=== PATIENT | female | born 1965 | race American Indian/Alaskan Native ===

== ENCOUNTER 2019-07-26 13:46 | Observation (INO) | payer SELFPAY ==
--- NOTE | 2019-07-26 14:40 | Event Note ---
ED Screening Note Date of service: 07/26/19 Time: 14:37 ED Screening Note: Pt complains of chest and shortness of breath x 1 week, worsening yesterday denies hx of IL/CVA/DVT/PE, recent long travel, or leg opain/swelling brother has hx of heart disease denies cough or congestion This initial assessment/diagnostic orders/clinical plan/treatment(s) is/are subject to change based on patients health status, clinical progression and re- assessment by fellow clinical providers in the ED. Further treatment and workup at subsequent clinical providers discretion. Patient/guardian urged not to elope from the ED as their condition may be serious if not clinically assessed and managed. Initial orders include: CXR Labs EKG
--- NOTE | 2019-07-26 15:22 | XRay Report ---
CHEST 2 VIEWS INDICATION / CLINICAL INFORMATION: MAIN: Chest Pain for about a week/worsening today. COMPARISON: None available. FINDINGS: SUPPORT DEVICES: None. HEART / MEDIASTINUM: No significant abnormality. LUNGS / PLEURA: No significant pulmonary or pleural abnormality. No pneumothorax. ADDITIONAL FINDINGS: No significant additional findings. IMPRESSION: 1. No acute findings. Signer Name: Isma Turcios MD Signed: 07/26/2019 3:17 PM Workstation Name: [id number]
[2019-07-26 15:42] LABS: Hematocrit 38.1 % (30.3-42.9); Hemoglobin 12.6 gm/dl (10.1-14.3); Mean Corpuscular HGB Conc 33 % (30-34); Mean Corpuscular Volume 91 fl (79-97); Platelet Count 276 K/mm3 (140-440); Red Blood Count 4.18 M/mm3 (3.65-5.03); Red Cell Distribution Width 13.5 % (13.2-15.2)
[2019-07-26 16:01] LABS: BUN/Creatinine Ratio 15; Blood Urea Nitrogen 12 mg/dL (7-17); Calcium 9.8 mg/dL (8.4-10.2); Hemolysis Index 4
[2019-07-26] MEDS ORDERED: CLOPIDOGREL 300 MG TAB PO ONE (19:13)
[2019-07-26] MEDS ORDERED: NITROGLYCERIN 2% OINT 1 GM TP ONE (19:13)
--- NOTE | 2019-07-26 19:16 | Emergency Department Report ---
HPI - General Chief Complaint: Chest Pain Time Seen by Provider: 07/26/19 14:37 - HPI HPI: Room 37 The pt is a 54 y/o F p/w a cc of CP and palpitations. The pt states for 1 week she has had intermittent Palpitations associated with CP and LUE cramping. The pt states the episodes last for seconds and family states lately the epsisodes have been coming ~ every 10 mins. The pt states she had a nl stress test 2 years ago but has never had a cath. ED Past Medical Hx - Past Medical History Hx Hypertension: Yes Additional medical history: HYPOTHYROID. PINCHED NERVE IN NECK - Surgical History Additional Surgical History: HYSTERECTOMY. TUBAL LIGATION - Family History Family history: no significant - Social History Smoking Status: Never Smoker Substance Use Type: None (denies illicit drug use), Alcohol (occ) - Medications Home Medications: Home Medications Medication Instructions Recorded Confirmed Last Taken Type Atenolol [Tenormin] 25 mg PO BID 10/30/15 10/30/15 10/30/15 09:00 History Fluticasone [Flonase] 1 spray NS QDAY #1 bottle 10/30/15 Unknown Rx Levothyroxine [Synthroid] 0 mcg PO QAM 10/30/15 10/30/15 10/30/15 09:00 History methOCARBAMOL [Robaxin TAB] 1,500 mg PO TID PRN #30 tab 10/30/15 Unknown Rx methylPREDNISolone [Medrol] 4 mg PO QDAY #1 tab.ds.pk 10/30/15 Unknown Rx Cyclobenzaprine [Flexeril] 10 mg PO TID PRN #14 tablet 07/21/16 Unknown Rx HYDROcodone/APAP 5-325 [[place] 1 - 2 each PO Q6HR PRN #14 tablet 07/21/16 Unknown Rx 5/325] Levothyroxine [Synthroid] 100 mcg PO QAM #60 tablet 07/21/16 Unknown Rx ED Review of Systems ROS: Stated complaint: CHEST/BACK PAIN/SOB Other details as noted in HPI Constitutional: no symptoms reported Eyes: denies: eye pain ENT: denies: throat pain Respiratory: no symptoms reported Cardiovascular: chest pain, palpitations Endocrine: no symptoms reported Gastrointestinal: denies: abdominal pain Genitourinary: denies: dysuria Musculoskeletal: denies: back pain Neurological: paresthesias Physical Exam - Physical Exam Vital Signs: Vital Signs 07/26/19 13:55 Temperature 98.5 F Pulse Rate 69 Respiratory 18 Rate Blood Pressure 195/101 O2 Sat by Pulse 99 Oximetry Physical Exam: GEN: WD WN F lying on stretcher in NAD HEENT: NCAT, EOMI NECK:Trachea midline, no stridor CV: rrr no m/r/g Pulm: CTAB. no resp distress ABD: s/nt/nd +BS Neuro: GCS 15 SKIN: no diaphoresis MS: no evidence of acute injury ED Course Vital Signs 07/26/19 13:55 Temperature 98.5 F Pulse Rate 69 Respiratory 18 Rate Blood Pressure 195/101 O2 Sat by Pulse 99 Oximetry ED Medical Decision Making - Lab Data Result diagrams: 07/26/19 15:16 07/26/19 15:16 Laboratory Tests 07/26/19 07/26/19 15:16 15:16 WBC 5.3 RBC 4.18 Hgb 12.6 Hct 38.1 MCV 91 MCH 30 MCHC 33 RDW 13.5 Plt Count 276 Sodium 138 Potassium 4.0 Chloride 101.8 Carbon Dioxide 23 Anion Gap 17 BUN 12 Creatinine 0.8 Estimated GFR > 60 BUN/Creatinine Ratio 15 Glucose 90 Calcium 9.8 Troponin T < 0.010 - EKG Data -: EKG Interpreted by Me EKG shows normal: sinus rhythm Rate: normal - EKG Data When compared to previous EKG there are: previous EKG unavailable Interpretation: normal EKG - Radiology Data Radiology results: report reviewed (CXR), image reviewed (CXR) interpreted by me: CXR- no focal infiltrates, no ptx [address] [address] XRay Report Signed Patient: MALINA LIN MR#: [id number] : 1965 Acct:[id number] Age/Sex: 54 / F ADM Date: 07/26/19 Loc: ED Attending Dr: Ordering Physician: KEY ROA Date of Service: 07/26/19 Procedure(s): XR chest routine 2V Accession Number(s): [id number] cc: KEY ROA Fluoro Time In Minutes: CHEST 2 VIEWS INDICATION / CLINICAL INFORMATION: MAIN: Chest Pain for about a week/worsening today. COMPARISON: None available. FINDINGS: SUPPORT DEVICES: None. HEART / MEDIASTINUM: No significant abnormality. LUNGS / PLEURA: No significant pulmonary or pleural abnormality. No pneumothorax. ADDITIONAL FINDINGS: No significant additional findings. IMPRESSION: 1. No acute findings. Signer Name: Isma Turcios MD Signed: 07/26/2019 3:17 PM Workstation Name: [id number] Transcribed By: Dictated By: Isma Turcios MD Electronically Authenticated By: Isma uTrcios MD Signed Date/Time: 07/26/191516 DD/ 16 TD/TT: - Differential Diagnosis dysrhythmia, ACS, pericarditis, GERD Critical care attestation.: If time is entered above; I have spent that time in minutes in the direct care of this critically ill patient, excluding procedure time. ED Disposition Clinical Impression: Chest pain, Palpitations Disposition: OP ADMIT IP TO THIS HOSP Is pt being admited?: Yes Does the pt Need Aspirin: No Condition: Fair Instructions: Chest Pain (ED) Time of Disposition: 19:20 (Hospitalist paged (Dr Montague))
[2019-07-26] MEDS ORDERED: ACETAMINOPHEN 325 MG TAB PO PRN (19:51)
[2019-07-26] MEDS ORDERED: MORPHINE 2 MG/1 ML INJ IV PRN (19:51)
[2019-07-26] MEDS ORDERED: ONDANSETRON 4 MG/2 ML INJ IV PRN (19:51)
[2019-07-26] MEDS ORDERED: hydrALAZINE 20 MG/1 ML INJ IV PRN (20:03)
[2019-07-26 20:19] LABS: Free T4 (Free Thyroxine) 0.62 ng/dL (0.76-1.46)
--- NOTE | 2019-07-26 21:27 | History and Physical Report ---
History of Present Illness Date of examination: 07/26/19 Date of admission: 07/26/19 19:51 Chief complaint: Chest Pain History of present illness: 54-year-old -English female with history of hypertension, hypothyroidism, and pinched nerve in neck since a sinus CT with complaints of chest pain for the past week. Patient states that she's been experiencing intermittent left-sided chest pain for the past week. Over over the weekend her pain became more persistent with radiation to right and left chest. Patient describes her pain has pressure, and rates it 7/10. She denies nausea, emesis or diaphoresis. She admits to having stress test 2 years ago and it was negative. Additionally patient complains of discomfort with urination and left side back pain. States that her symptoms are similar to when she was diagnosed with a UTI 2 months. She was treated with oral antibiotics for UTI and confirms position on a full course of antibiotics. Past History Past Medical History: hypertension, hypothyroidism, other (pinched nerve in neck) Past Surgical History: hysterectomy, Other (tubal ligation) Social history: lives with family, other (occasional alcohol use) Family history: hypertension Medications and Allergies Allergies Allergy/AdvReac Type Severity Reaction Status Date / Time aspirin Allergy Swelling Verified 07/26/19 14:19 ibuprofen Allergy Swelling Verified 07/26/19 14:19 codeine AdvReac Vomiting Verified 07/26/19 14:19 SALMON Allergy Swelling Uncoded 07/26/19 14:19 Home Medications Medication Instructions Recorded Confirmed Last Taken Type Atenolol [Tenormin] 25 mg PO BID 10/30/15 10/30/15 10/30/15 09:00 History Fluticasone [Flonase] 1 spray NS QDAY #1 bottle 10/30/15 Unknown Rx Levothyroxine [Synthroid] 0 mcg PO QAM 10/30/15 10/30/15 10/30/15 09:00 History methOCARBAMOL [Robaxin TAB] 1,500 mg PO TID PRN #30 tab 10/30/15 Unknown Rx methylPREDNISolone [Medrol] 4 mg PO QDAY #1 tab.ds.pk 10/30/15 Unknown Rx Cyclobenzaprine [Flexeril] 10 mg PO TID PRN #14 tablet 07/21/16 Unknown Rx HYDROcodone/APAP 5-325 [[place] 1 - 2 each PO Q6HR PRN #14 tablet 07/21/16 Unknown Rx 5/325] Levothyroxine [Synthroid] 100 mcg PO QAM #60 tablet 07/21/16 Unknown Rx Active Meds: Active Medications Acetaminophen (Tylenol) 650 mg PO Q4H PRN PRN Reason: Pain MILD(1-3)/Fever >100.5/RAMSAY Atenolol (Tenormin) 25 mg PO BID MADHU Atorvastatin Calcium (Lipitor) 40 mg PO QHS MADHU Clopidogrel Bisulfate (Plavix) 75 mg PO QDAY MADHU Enoxaparin Sodium (Enoxaparin) 40 mg SUB-Q QDAY MADHU Hydralazine HCl (Apresoline) 10 mg IV Q4H PRN PRN Reason: SBP>160 OR DBP>100 Levothyroxine Sodium (Synthroid) 112 mcg PO DAILY@0600 MAD[facility] Morphine Sulfate (Morphine) 2 mg IV Q4H PRN PRN Reason: Pain, Moderate (4-6) Ondansetron HCl (Zofran) 4 mg IV Q6H PRN PRN Reason: Nausea And Vomiting Sodium Chloride (Sodium Chloride Flush Syringe 10 Ml) 10 ml IV BID MADHU Sodium Chloride (Sodium Chloride Flush Syringe 10 Ml) 10 ml IV PRN PRN PRN Reason: LINE FLUSH Review of Systems All systems: negative Cardiovascular: chest pain, dyspnea on exertion Exam - Physical Exam Narrative exam: Physical exam General appearance: Present: No apparent distress, alert and oriented 3,pleasant, well-developed, well-nourished, adult -English female - EENT Eyes: Present: PERRL, EOM intact ENT: hearing intact, normal dentition - Neck Neck: Present: supple, normal ROM - Respiratory Respiratory effort: Non-labored Respiratory: CTA bilaterally - Cardiovascular Heart rate: 74 (bpm) Rhythm: SR Heart Sounds: Present: S1 & S2. Absent: rub, click - Extremities Extremities: no ischemia, pulses intact, - Peripheral Assessment Peripheral Pulses: within normal limits - Abdominal General gastrointestinal: soft, non-tender, normal bowel sounds - Integumentary Integumentary: Present: warm, dry - Musculoskeletal Musculoskeletal: able to move all extremities 4 -Neurological Neurological: CN II-XII grossly intact - Psychiatric Psychiatric: cooperative - Constitutional Vitals: Temp Pulse Resp BP Pulse Ox 98.5 F 78 16 190/117 99 07/26/19 13:55 07/26/19 20:10 07/26/19 21:14 07/26/19 20:10 07/26/19 13:55 Results - Labs CBC & Chem 7: 07/26/19 15:16 07/26/19 15:16 Labs: Laboratory Last Values WBC 5.3 K/mm3 (4.5-11.0) 07/26/19 15:16 RBC 4.18 M/mm3 (3.65-5.03) 07/26/19 15:16 Hgb 12.6 gm/dl (10.1-14.3) 07/26/19 15:16 Hct 38.1 % (30.3-42.9) 07/26/19 15:16 MCV 91 fl (79-97) 07/26/19 15:16 MCH 30 pg (28-32) 07/26/19 15:16 MCHC 33 % (30-34) 07/26/19 15:16 RDW 13.5 % (13.2-15.2) 07/26/19 15:16 Plt Count 276 K/mm3 (140-440) 07/26/19 15:16 Sodium 138 mmol/L (137-145) 07/26/19 15:16 Potassium 4.0 mmol/L (3.6-5.0) 07/26/19 15:16 Chloride 101.8 mmol/L (98-107) 07/26/19 15:16 Carbon Dioxide 23 mmol/L (22-30) 07/26/19 15:16 Anion Gap 17 mmol/L 07/26/19 15:16 BUN 12 mg/dL (7-17) 07/26/19 15:16 Creatinine 0.8 mg/dL (0.7-1.2) 07/26/19 15:16 Estimated GFR > 60 ml/min 07/26/19 15:16 BUN/Creatinine Ratio 15 % 07/26/19 15:16 Glucose 90 mg/dL (65-100) 07/26/19 15:16 Calcium 9.8 mg/dL (8.4-10.2) 07/26/19 15:16 Troponin T < 0.010 ng/mL (0.00-0.029) 07/26/19 19:13 TSH 1.280 mlU/mL (0.270-4.200) 07/26/19 19:30 Free T4 0.62 ng/dL (0.76-1.46) L 07/26/19 19:30 - Imaging and Cardiology Imaging and Cardiology: CXR: FINDINGS: SUPPORT DEVICES: None. HEART / MEDIASTINUM: No significant abnormality. LUNGS / PLEURA: No significant pulmonary or pleural abnormality. No pneumothorax. ADDITIONAL FINDINGS: No significant additional findings. IMPRESSION: 1. No acute findings. Assessment and Plan Assessment and plan: 54-year-old -English female with history of hypertension, hypothyroidism, and pinched nerve in neck since a sinus CT with complaints of chest pain for the past week. Acute Chest Pain R/O ACS -Initiate chest pain protocol -Continuous telemetry monitoring -Continue supportive care -Pain mgmt -Troponin neg x 2, will continue to trend x1 -History of palpitation -Started on Plavix (she has ASA allergy) and statin -The stress test 2 years ago -Treadmill stress test pending -Will defer further diagnostic testing per cardiology recommendation -Cardiology consulted Hypertensive urgency -BP on admission 190/117 Hx HTN, compliant with medication -Monitor BP -Resume home antihypertensive meds to optimize BP -IV hydralazine when necessary Hypothyroidism -Continue Synthroid Hx of UTI -Possibly 2 months ago treated with oral Abx -c/o discomfort with urination -UA pending -Will start on IV abx and order culture if UA positive DVT PPX -On Lovenox Advance Directives: No VTE prophylaxis?: Chemical Plan of care discussed with patient/family: Yes
[2019-07-26] MEDS ORDERED: ONDANSETRON 4 MG/2 ML INJ ONE (21:41)
[2019-07-26 23:44] LABS: Basophils % (Auto) 0.5 % (0.0-1.8); Eosinophils # (Auto) 0.2 K/mm3 (0.0-0.4); Eosinophils % (Auto) 3.2 % (0.0-4.3); Hematocrit 38.7 % (30.3-42.9); Lymphocytes # (Auto) 1.7 K/mm3 (1.2-5.4); Lymphocytes % (Auto) 25.5 % (13.4-35.0); Mean Corpuscular HGB Conc 34 % (30-34); Mean Corpuscular Volume 90 fl (79-97); Monocytes # (Auto) 0.3 K/mm3 (0.0-0.8); Monocytes % (Auto) 4.9 % (0.0-7.3); Platelet Count 278 K/mm3 (140-440); Red Blood Count 4.31 M/mm3 (3.65-5.03); Red Cell Distribution Width 13.5 % (13.2-15.2)
[2019-07-26 23:56] LABS: Bilirubin,Urine NEG (Negative); Blood,Urine NEG (Negative); Color,Urine Straw (Yellow); Protein,Urine <15 mg/dL mg/dL (Negative); RBC,Urine < 1.0 /HPF (0.0-6.0); Urobilinogen,Urine < 2.0 mg/dL (<2.0); WBC,Urine < 1.0 /HPF (0.0-6.0)
[2019-07-27] MEDS: atenoloL 25 MG TAB PO SCH ×2 (00:24→14:35)
[2019-07-27 01:37] LABS: BUN/Creatinine Ratio 14; Blood Urea Nitrogen 13 mg/dL (7-17); Calcium 9.6 mg/dL (8.4-10.2); Chol/HDL Ratio 3.05 %; HDL Cholesterol 59 mg/dL (40-59); Hemolysis Index 0; LDL Cholesterol,Direct 124 mg/dL (50-130)
[2019-07-27 04:25] LABS: Basophils % (Auto) 0.1 % (0.0-1.8); Eosinophils # (Auto) 0.2 K/mm3 (0.0-0.4); Eosinophils % (Auto) 3.5 % (0.0-4.3); Hematocrit 37.3 % (30.3-42.9); Hemoglobin 12.2 gm/dl (10.1-14.3); Lymphocytes # (Auto) 1.8 K/mm3 (1.2-5.4); Lymphocytes % (Auto) 26.2 % (13.4-35.0); Mean Corpuscular HGB Conc 33 % (30-34); Mean Corpuscular Volume 91 fl (79-97); Monocytes # (Auto) 0.4 K/mm3 (0.0-0.8); Platelet Count 264 K/mm3 (140-440); Red Blood Count 4.11 M/mm3 (3.65-5.03); Red Cell Distribution Width 13.3 % (13.2-15.2)
[2019-07-27 04:41] LABS: BUN/Creatinine Ratio 18; Blood Urea Nitrogen 14 mg/dL (7-17); Calcium 9.5 mg/dL (8.4-10.2); Hemolysis Index 10
[2019-07-27] MEDS ORDERED: LEVOTHYROXINE 112 MCG TAB PO SCH (06:00)
[2019-07-27] MEDS ORDERED: CLOPIDOGREL 75 MG TAB PO SCH (10:00)
[2019-07-27] MEDS ORDERED: PANTOPRAZOLE 40 MG INJ IV SCH (10:00)
[2019-07-27] MEDS ORDERED: ENOXAPARIN 40 MG/0.4 ML INJ SUB-Q SCH (10:00)
--- NOTE | 2019-07-27 10:12 | Consultation ---
Past History Past Medical History: hypertension, hypothyroidism, other (pinched nerve in neck) Past Surgical History: hysterectomy, Other (tubal ligation) Social history: lives with family, other (occasional alcohol use) Family history: hypertension Medications and Allergies Allergies Allergy/AdvReac Type Severity Reaction Status Date / Time aspirin Allergy Swelling Verified 07/26/19 14:19 ibuprofen Allergy Swelling Verified 07/26/19 14:19 codeine AdvReac Vomiting Verified 07/26/19 14:19 SALMON Allergy Swelling Uncoded 07/26/19 14:19 Home Medications Medication Instructions Recorded Confirmed Last Taken Type Atenolol [Tenormin] 25 mg PO BID 10/30/15 07/26/19 10/30/15 09:00 History Fluticasone [Flonase] 1 spray NS QDAY #1 bottle 10/30/15 07/26/19 Unknown Rx Levothyroxine [Synthroid] 100 mcg PO QAM #60 tablet 07/21/16 07/26/19 Unknown Rx Multivit with Calcium,Iron,Min 1 each PO DAILY 07/26/19 07/26/19 Unknown History [One Daily Women's] Active Meds: Active Medications Acetaminophen (Tylenol) 650 mg PO Q4H PRN PRN Reason: Pain MILD(1-3)/Fever >100.5/RAMSAY Last Admin: 07/27/19 01:35 Dose: 650 mg Documented by: Atenolol (Tenormin) 25 mg PO BID [facility] Last Admin: 07/27/19 00:24 Dose: 25 mg Documented by: Atorvastatin Calcium (Lipitor) 40 mg PO QHS [facility] Last Admin: 07/26/19 23:12 Dose: 40 mg Documented by: Clopidogrel Bisulfate (Plavix) 75 mg PO QDAY [facility] Enoxaparin Sodium (Enoxaparin) 40 mg SUB-Q QDAY [facility] Hydralazine HCl (Apresoline) 10 mg IV Q4H PRN PRN Reason: SBP>160 OR DBP>100 Levothyroxine Sodium (Synthroid) 112 mcg PO DAILY@0600 [facility] Last Admin: 07/27/19 06:11 Dose: 112 mcg Documented by: Morphine Sulfate (Morphine) 2 mg IV Q4H PRN PRN Reason: Pain, Moderate (4-6) Last Admin: 07/26/19 21:34 Dose: 2 mg Documented by: Ondansetron HCl (Zofran) 4 mg IV Q6H PRN PRN Reason: Nausea And Vomiting Last Admin: 07/26/19 21:51 Dose: 4 mg Documented by: Pantoprazole Sodium (Protonix) 40 mg IV QDAY MADHU Sodium Chloride (Sodium Chloride Flush Syringe 10 Ml) 10 ml IV BID MADHU Last Admin: 07/27/19 00:25 Dose: 10 ml Documented by: Sodium Chloride (Sodium Chloride Flush Syringe 10 Ml) 10 ml IV PRN PRN PRN Reason: LINE FLUSH Physical Examination Vital Signs Temp Pulse Resp BP Pulse Ox 98.5 F 69 18 195/101 99 07/26/19 13:55 07/26/19 13:55 07/26/19 13:55 07/26/19 13:55 07/26/19 13:55 Results 07/27/19 03:51 07/27/19 03:51 Lipids 07/26/19 Range/Units 23:26 Triglycerides 55 (2-149) mg/dL Cholesterol 180 (50-199) mg/dL HDL Cholesterol 59 (40-59) mg/dL Cholesterol/HDL Ratio 3.05 % CBC 07/26/19 07/26/19 07/27/19 Range/Units 15:16 23:26 03:51 WBC 5.3 6.7 6.9 (4.5-11.0) K/mm3 RBC 4.18 4.31 4.11 (3.65-5.03) M/mm3 Hgb 12.6 13.0 12.2 (10.1-14.3) gm/dl Hct 38.1 38.7 37.3 (30.3-42.9) % Plt Count 276 278 264 (140-440) K/mm3 Lymph # 1.7 1.8 (1.2-5.4) K/mm3 Cache # 0.3 0.4 (0.0-0.8) K/mm3 Eos # 0.2 0.2 (0.0-0.4) K/mm3 Baso # 0.0 0.0 (0.0-0.1) K/mm3 Comprehensive Metabolic Panel 07/26/19 07/26/19 07/27/19 Range/Units 15:16 23:26 03:51 Sodium 138 139 137 (137-145) mmol/L Potassium 4.0 4.0 4.0 (3.6-5.0) mmol/L Chloride 101.8 102.4 101.4 (98-107) mmol/L Carbon Dioxide 23 25 24 (22-30) mmol/L BUN 12 13 14 (7-17) mg/dL Creatinine 0.8 0.9 0.8 (0.7-1.2) mg/dL Glucose 90 108 H 112 H (65-100) mg/dL Calcium 9.8 9.6 9.5 (8.4-10.2) mg/dL Assessment and Plan full consult dictated
[2019-07-27] MEDS ORDERED: REGADENOSON 0.4 MG/5 ML INJ IV ONE (10:28)
[2019-07-27] MEDS ORDERED: PANTOPRAZOLE 40 MG TAB PO SCH (11:00)
--- NOTE | 2019-07-27 11:33 | Consultation ---
REFERRING PHYSICIAN: Hospitalist service. REASON FOR CONSULTATION: Advice and opinion regarding chest pain. HISTORY OF PRESENT ILLNESS: The patient is a pleasant 54-year-old -German female with a history of hypertension, hypothyroidism, radiculopathy, who presents with left-sided chest pain on and off for the last week, sharp and tight nonexertional. Her primary care physician is at [facility]. She is currently seen in the stress lab. Denies any chest pain. No syncope or presyncope. No lightheadedness or dizziness. No abdominal pain, hematochezia, melena, hemoptysis or hematemesis. PAST MEDICAL HISTORY: Hypertension, hypothyroidism. PAST SURGICAL HISTORY: Hysterectomy, tubal ligation. SOCIAL HISTORY: Lives with her family. Nonsmoker, occasional alcohol use. FAMILY HISTORY: Hypertension. ALLERGIES: Allergic to ASPIRIN, IBUPROFEN, CODEINE and SALMON. HOME MEDICATIONS: Reviewed and include atenolol, Flonase, Synthroid, Robaxin, Medrol, Flexeril. REVIEW OF SYSTEMS: As per HPI. She is currently chest pain free, feeling much better. PHYSICAL EXAMINATION: VITAL SIGNS: Blood pressure is 120/70. She is afebrile. Tele reveals sinus rhythm, no dysrhythmias. O2 sats 90% on room air. GENERAL: This is a middle-aged -German female in no apparent distress, oriented x 3. HEENT: Sclerae icteric. NECK: Supple, no masses, no JVD. CHEST: Clear to auscultation bilaterally. Good air movement. CARDIOVASCULAR: Regular rhythm, S1, S2. ABDOMEN: Soft, nontender, nondistended. Normoactive bowel sounds in 4 quadrants. No mass or bruits. EXTREMITIES: No cyanosis, clubbing or edema. Good peripheral pulses. SKIN: Intact. No rashes. LABORATORY DATA: EKG reveals normal sinus rhythm, nonacute nonspecific ST-T changes. Troponins negative x 3. Blood work is otherwise unremarkable, CBC and BMP. CONCLUSIONS: In summary, the patient is a pleasant 54-year-old -German female. 1. Chest pain with typical and atypical features. Cardiac enzymes negative x 3. Stress test is pending. Risk factors include hypertension. 2. Hypertensive urgency upon arrival in the Emergency Room, now improved. 3. Multiple medication allergies. Further plans contingent on stress test results. Thank you for this consultation and I would be happy following with you. JOB# [id number] SBM/NTS
[2019-07-27 12:38] VITALS: BP 149/95
--- NOTE | 2019-07-27 14:24 | Progress Note ---
Assessment and Plan Assessment and plan: 54-year-old -[place] Citizen female with history of hypertension, hypothyroidism, and pinched nerve in neck since a sinus CT with complaints of chest pain for the past week. Acute Chest Pain R/O ACS -Initiate chest pain protocol -Continuous telemetry monitoring -Continue supportive care -Pain mgmt -Troponin neg x 2, will continue to trend x1 -History of palpitation -Started on Plavix (she has ASA allergy) and statin -The stress test 2 years ago -Treadmill stress test pending -Will defer further diagnostic testing per cardiology recommendation -Cardiology consulted Hypertensive urgency -BP on admission 190/117 Hx HTN, compliant with medication -Monitor BP -Resume home antihypertensive meds to optimize BP -IV hydralazine when necessary Hypothyroidism -Continue Synthroid Hx of UTI -Possibly 2 months ago treated with oral Abx -c/o discomfort with urination -UA pending -Will start on IV abx and order culture if UA positive DVT PPX -On Lovenox Advance Directives: No VTE prophylaxis?: Chemical Plan of care discussed with patient/family: Yes Hospitalist Physical - Constitutional Vitals: Temp Pulse Resp BP Pulse Ox 98.3 F 76 18 149/95 100 07/27/19 04:32 07/27/19 12:36 07/27/19 08:31 07/27/19 12:36 07/27/19 14:15 Results - Labs CBC & Chem 7: 07/27/19 03:51 07/27/19 03:51 Labs: Laboratory Last Values WBC 6.9 K/mm3 (4.5-11.0) 07/27/19 03:51 RBC 4.11 M/mm3 (3.65-5.03) 07/27/19 03:51 Hgb 12.2 gm/dl (10.1-14.3) 07/27/19 03:51 Hct 37.3 % (30.3-42.9) 07/27/19 03:51 MCV 91 fl (79-97) 07/27/19 03:51 MCH 30 pg (28-32) 07/27/19 03:51 MCHC 33 % (30-34) 07/27/19 03:51 RDW 13.3 % (13.2-15.2) 07/27/19 03:51 Plt Count 264 K/mm3 (140-440) 07/27/19 03:51 Lymph % (Auto) 26.2 % (13.4-35.0) 07/27/19 03:51 [place] % (Auto) 6.0 % (0.0-7.3) 07/27/19 03:51 Eos % (Auto) 3.5 % (0.0-4.3) 07/27/19 03:51 Baso % (Auto) 0.1 % (0.0-1.8) 07/27/19 03:51 Lymph # 1.8 K/mm3 (1.2-5.4) 07/27/19 03:51 [place] # 0.4 K/mm3 (0.0-0.8) 07/27/19 03:51 Eos # 0.2 K/mm3 (0.0-0.4) 07/27/19 03:51 Baso # 0.0 K/mm3 (0.0-0.1) 07/27/19 03:51 Seg Neutrophils % 64.2 % (40.0-70.0) 07/27/19 03:51 Seg Neutrophils # 4.5 K/mm3 (1.8-7.7) 07/27/19 03:51 Sodium 137 mmol/L (137-145) 07/27/19 03:51 Potassium 4.0 mmol/L (3.6-5.0) 07/27/19 03:51 Chloride 101.4 mmol/L (98-107) 07/27/19 03:51 Carbon Dioxide 24 mmol/L (22-30) 07/27/19 03:51 Anion Gap 16 mmol/L 07/27/19 03:51 BUN 14 mg/dL (7-17) 07/27/19 03:51 Creatinine 0.8 mg/dL (0.7-1.2) 07/27/19 03:51 Estimated GFR > 60 ml/min 07/27/19 03:51 BUN/Creatinine Ratio 18 % 07/27/19 03:51 Glucose 112 mg/dL (65-100) H 07/27/19 03:51 Calcium 9.5 mg/dL (8.4-10.2) 07/27/19 03:51 Troponin T < 0.010 ng/mL (0.00-0.029) 07/27/19 03:51 Triglycerides 55 mg/dL (2-149) 07/26/19 23:26 Cholesterol 180 mg/dL (50-199) 07/26/19 23:26 LDL Cholesterol Direct 124 mg/dL (50-130) 07/26/19 23:26 HDL Cholesterol 59 mg/dL (40-59) 07/26/19 23:26 Cholesterol/HDL Ratio 3.05 % 07/26/19 23:26 TSH 1.280 mlU/mL (0.270-4.200) 07/26/19 19:30 Free T4 0.62 ng/dL (0.76-1.46) L 07/26/19 19:30 Urine Color Straw (Yellow) 07/26/19 23:16 Urine Turbidity Clear (Clear) 07/26/19 23:16 Urine pH 6.0 (5.0-7.0) 07/26/19 23:16 Ur Specific [place] 1.009 (1.003-1.030) 07/26/19 23:16 Urine Protein <15 mg/dl mg/dL (Negative) 07/26/19 23:16 Urine Glucose (UA) Neg mg/dL (Negative) 07/26/19 23:16 Urine Ketones Tr mg/dL (Negative) 07/26/19 23:16 Urine Blood Neg (Negative) 07/26/19 23:16 Urine Nitrite Neg (Negative) 07/26/19 23:16 Urine Bilirubin Neg (Negative) 07/26/19 23:16 Urine Urobilinogen < 2.0 mg/dL (<2.0) 07/26/19 23:16 Ur Leukocyte Esterase Neg (Negative) 07/26/19 23:16 Urine WBC (Auto) < 1.0 /HPF (0.0-6.0) 07/26/19 23:16 Urine RBC (Auto) < 1.0 /HPF (0.0-6.0) 07/26/19 23:16 U Epithel Cells (Auto) < 1.0 /HPF (0-13.0) 07/26/19 23:16 Active Medications - Current Medications Current Medications: Generic Name Dose Route Start Last Admin Trade Name Freq PRN Reason Stop Dose Admin Acetaminophen 650 mg 07/26/19 19:51 07/27/19 01:35 Tylenol PO 650 mg Q4H PRN Administration Pain MILD(1-3)/Fever >100.5/RAMSAY Atenolol 25 mg 07/26/19 22:00 07/27/19 00:24 Tenormin PO 25 mg BID MADHU Administration Atorvastatin Calcium 40 mg 07/26/19 22:00 07/26/19 23:12 Lipitor PO 40 mg QHS MADHU Administration Clopidogrel Bisulfate 75 mg 07/27/19 10:00 Plavix PO QDAY [facility] Enoxaparin Sodium 40 mg 07/27/19 10:00 Enoxaparin SUB-Q QDAY [facility] Hydralazine HCl 10 mg 07/26/19 20:03 Apresoline IV Q4H PRN SBP>160 OR DBP>100 Levothyroxine Sodium 112 mcg 07/27/19 06:00 07/27/19 06:11 Synthroid PO 112 mcg DAILY@0600 [facility] Administration Morphine Sulfate 2 mg 07/26/19 19:51 07/26/19 21:34 Morphine IV 2 mg Q4H PRN Administration Pain, Moderate (4-6) Ondansetron HCl 4 mg 07/26/19 19:51 07/26/19 21:51 Zofran IV 4 mg Q6H PRN Administration Nausea And Vomiting Pantoprazole Sodium 40 mg 07/27/19 11:00 Protonix PO DAILY [facility] Sodium Chloride 10 ml 07/26/19 22:00 07/27/19 00:25 Sodium Chloride Flush Syringe 10 Ml IV 10 ml BID MADHU Administration Sodium Chloride 10 ml 07/26/19 19:51 Sodium Chloride Flush Syringe 10 Ml IV PRN PRN LINE FLUSH
--- NOTE | 2019-07-27 17:22 | Discharge Summary ---
Providers - Providers Date of Admission: 07/26/19 19:51 Attending physician: CASE DAVIS MD 07/26/19 19:51 Consult to Physician [CONS] Routine Comment: Consulting Provider: SHIRLEY COREY Physician Instructions: Reason For Exam: chest pain, hx palpitation [facility] Hospital course: 54-year-old woman who presents to the hospital complaining of chest pain. She went on to have stress test which was negative, she was found to have hypertensive urgency. BP meds were optimized. Preventative health counseling performed for 17 minutes Diagnosis chest pain likely due to hypertensive urgency Hypertensive urgency Chronic hypothyroidism on Synthroid Disposition: TO HOME OR SELFCARE Time spent for discharge: 35 minutes Core Measure Documentation - Palliative Care Palliative Care/ Comfort Measures: Not Applicable - Core Measures Any of the following diagnoses?: none Exam - Constitutional Vitals: Temp Pulse Resp BP Pulse Ox 98.3 F 76 18 149/95 100 07/27/19 04:32 07/27/19 14:35 07/27/19 08:31 07/27/19 14:35 07/27/19 14:15 General appearance: Present: no acute distress, well-nourished - EENT Eyes: Present: PERRL ENT: hearing intact, clear oral mucosa - Neck Neck: Present: supple, normal ROM - Respiratory Respiratory effort: normal Respiratory: bilateral: CTA - Cardiovascular Heart Sounds: Present: S1 & S2. Absent: rub, click - Extremities Extremities: pulses symmetrical, No edema Peripheral Pulses: within normal limits - Abdominal General gastrointestinal: Present: soft, non-tender, non-distended, normal bowel sounds Female genitourinary: Present: normal - Integumentary Integumentary: Present: clear, warm, dry - Musculoskeletal Musculoskeletal: gait normal, strength equal bilaterally - Psychiatric Psychiatric: appropriate mood/affect, intact judgment & insight - Neurologic Neurologic: CNII-XII intact, moves all extremities Plan Follow up with: MIKAYLA KEATING MD [Primary Care Provider] - 7 Days Forms: Accompanied Note Prescriptions: Atenolol [Tenormin] 25 mg PO BID #[id number]
--- NOTE | 2019-07-27 22:47 | Treadmill Report ---
NUCLEAR STRESS TEST REFERRING PHYSICIAN: Hospitalist service. PROTOCOL: The patient was brought to the stress lab in a postoperative state, given 10 mCi of technetium 99m at rest. The patient underwent rest imaging. The patient underwent Lexiscan stress test. At peak stress, the patient was given 26 mCi of technetium 99m. Shortly thereafter, underwent stress imaging. Raw imaging reveals mild GI artifact. No significant motion artifact. SPECT imaging examined carefully in horizontal long axis, vertical long axis, short axis views. There is normal mitral uptake of radioisotope in all four segments. No evidence of significant fixed or reversible perfusion defects suggestive of prior infarction or ischemia. Gated wall motion reveals normal systolic thickening, calculated ejection fraction of 54%. CONCLUSIONS: 1. Normal myocardial perfusion scan without evidence of active ischemia or prior infarction. 2. Normal left ventricular systolic performance without evidence of transient ischemic dilatation or stress-induced segmental wall motion abnormalities. JOB# [id number] SBBelen/NTS
== END 2019-07-27 19:48 | disposition home or self-care (01) ==
LOC: ED 13:46 → 4A 19:51
PROVIDERS: ADMIT Internal Medicine; ATTEND Internal Medicine
DX: R07.89 Other chest pain (principal); I16.0 Hypertensive urgency; E03.9 Hypothyroidism, unspecified; I10 Essential (primary) hypertension; R00.2 Palpitations; Z87.440 Personal history of urinary (tract) infections; Z90.710 Acquired absence of both cervix and uterus; Z98.51 Tubal ligation status
CPT/HCPCS: 36415; 71046; 78452; 80048; 80061; 81001; 84439; 84443; 84484; 85025; 85027; 93005; 93010; 93017; 93306; 96372; 96374; 96375; 99284; A9270; A9502; G0378; J1650; J2405